=== PATIENT | female | born 1940 | race Caucasian/White ===

== ENCOUNTER 2022-07-28 06:18 | Day surgery (SDC) | payer MEDICARE, BC ==
--- NOTE | 2022-07-27 13:47 | HP ---
DATE OF SURGERY: 07/28/2022 HISTORY OF PRESENT ILLNESS: The patient is an 82-year-old female presents with complaints of food and liquid getting stuck in her esophagus in the mid chest. She has been dilated before. She complains of epigastric pain and right upper quadrant pain. She has a history of ulcers. She has pain after eating, no certain food. Pepcid is not really helping. She has been on some omeprazole PAST MEDICAL HISTORY: Thyroid. Heart disease. Diabetes. Hypertension. Hyperlipidemia. Anxiety. Depression. Gastroesophageal reflux disease. PAST SURGICAL HISTORY: Shoulder surgery. Hysterectomy. ALLERGIES: GABAPENTIN. ISOSORBIDE. OXYCODONE. LYRICA. TRAMADOL. HYDROCODONE. MEDICATIONS: Levothyroxine, amlodipine, Ranexa, Metformin, metoprolol, fluoxetine, atorvastatin, furosemide, Proventil, pantoprazole. FAMILY HISTORY: Heart disease. Alzheimer's. Renal cancer. Colon cancer. SOCIAL HISTORY: None. REVIEW OF SYSTEMS: CONSTITUTIONAL: Denies fever or chills. CHEST: Denies shortness of breath. CVS: Denies chest pain. ABDOMEN: Reports abdominal pain. PHYSICAL EXAMINATION: GENERAL: No acute distress. CHEST: Nonlabored. No shortness of breath. CVS: Regular rate and rhythm. ABDOMEN: Soft. IMPRESSION: Epigastric pain, dysphagia, postprandial right upper quadrant pain, history of peptic ulcer disease. PLAN: EGD with possible dilatation. We have also ordered a gallbladder work up on this patient. We will need to see her back in the office. As dictated by Tenisha Madrid NP.
[2022-07-28] MEDS ORDERED: Lactated Ringers 1,000 ML IV ONE (06:54)
[2022-07-28] MEDS ORDERED: Lactated Ringers 1,000 ML IV SCH (07:00)
[2022-07-28] MEDS ORDERED: DIPRIVAN 200 MG/20 ML IV ONE (09:12)
[2022-07-28 10:15] VITALS: BP 145/75; PULSE 58; O2SAT 97
--- NOTE | 2022-07-28 13:02 | OP ---
SURGERY DATE/TIME: 07/28/2022 0909 PREOPERATIVE DIAGNOSIS: Dysphagia. POSTOPERATIVE DIAGNOSIS: Presbyesophagus. PROCEDURE: EGD. SURGEON: Sebastian Dueñas M.D. ANESTHESIA: Versed and Demerol. FINDINGS: Presbyesophagus. TREATMENT: Bentyl 10 mg p.o. b.i.d. which could be increased to t.i.d. with meals if beneficial. DESCRIPTION OF PROCEDURE: The patient is taken to endoscopy. Left lateral decubitus position. Scope introduced. Pharyngoesophageal junction normal. Esophagus normal down to gastroesophageal junction. Gastroesophageal junction satisfactory. Fundus, body and antrum normal. Pyloric channel normal. Duodenal bulb normal. Second portion normal. Scope looped upon itself. No hiatal hernia. Scope withdrawn. Presbyesophagus was present. There was no organic obstruction but there was intermittent pressure wave through here that was substantial. IMPRESSION: Presbyesophagus. Bentyl 10 mg p.o. b.i.d. will help this relax.
== END 2022-07-28 10:20 | disposition home or self-care (01) ==
LOC: SDC 06:18
PROVIDERS: ATTEND Surgery
DX: K22.89 Other specified disease of esophagus (principal); R47.02 Dysphasia; E11.9 Type 2 diabetes mellitus without complications; Z80.0 Family history of malignant neoplasm of digestive organs; Z80.8 Family history of malignant neoplasm of other organs or systems
CPT/HCPCS: 82947; J2704